=== PATIENT | female | born 1935 | race Caucasian/White ===

== ENCOUNTER → 2018-12-26 | Outpatient (CLI) | payer MEDICARE ==
--- NOTE | 2018-12-26 12:18 | Diagnostic Imaging Report ---
PROCEDURE: CT head without contrast. TECHNIQUE: Multiple contiguous axial images were obtained through the brain without the use of intravenous contrast. Auto Exposure Controls were utilized during the CT exam to meet ALARA standards for radiation dose reduction. DATE: December 26, 2018. COMPARISON: None. INDICATION: 83-year-old female, hypertension. Left upper arm pain and numbness. FINDINGS: There is proportional prominence of the ventricles and CSF spaces compatible with mild cerebral volume loss. There are areas of CSF attenuation in the right temporal and frontal lobes compatible with changes of encephalomalacia. There are symmetric bilateral basal ganglia calcifications. There is no mass effect or midline shift. There is no acute intracranial hemorrhage. There is no abnormal extra-axial fluid collection. The visualized portions of the paranasal sinuses, mastoid air cells and middle ears are well aerated. IMPRESSION: 1. 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 2. No identified acute intracranial abnormality. 3. Mild cerebral volume loss. Dictated by: Dictated on workstation # [id number]
== END ==
LOC: RAD FS 10:44
PROVIDERS: ATTEND Family Medicine
DX: G93.89 Other specified disorders of brain (principal); I10 Essential (primary) hypertension; M79.622 Pain in left upper arm
CPT/HCPCS: 70450

== ENCOUNTER → 2020-05-09 | Outpatient (CLI) | payer MEDICARE ==
--- NOTE | 2020-05-09 10:32 | Diagnostic Imaging Report ---
PROCEDURE: CT chest without contrast. TECHNIQUE: Multiple contiguous axial images were obtained through the chest without the use of intravenous contrast. Auto Exposure Controls were utilized during the CT exam to meet ALARA standards for radiation dose reduction. INDICATION: Cough. COMPARISON: There are no prior studies available for comparison. FINDINGS: There are severe emphysematous changes involving both lungs. Furthermore, there is a prominent area of pneumonia/atelectasis involving the right lung base. Minimal left lower lobe pneumonia/atelectasis is also seen. The upper lungs are generally clear and there is no sign of a pleural effusion. The heart size is within normal limits. There are extensive coronary artery calcifications evident. The aorta is not abnormally dilated. There is no obvious mediastinal or hilar adenopathy. The thyroid gland is generally unremarkable. There is no definite breast mass noted. The sections through the upper abdomen failed to show any sign of an acute abnormality. However, the abdominal aorta is heavily calcified and ectatic. There is also apparent dilatation of the infrarenal abdominal aorta. The aorta in this area measures 2.2 x 3.3 cm. This finding could be secondary to ectasia of the vessel as opposed to an aneurysm. Even so, I would recommend that CT of the abdomen and pelvis be performed to better evaluate the abdominal aorta. The bone windows show no sign of a fracture or of a destructive lesion. IMPRESSION: 1. There are severe emphysematous changes involving both lungs and there is a prominent area of pneumonia/atelectasis in the right lung base. Minimal left lower lobe atelectasis/infiltrate is also seen. 2. There is no acute cardiopulmonary abnormality noted, otherwise. 3. The heart size is within normal limits. There are extensive coronary artery calcifications evident. 4. There is a question of an aneurysm involving the infrarenal abdominal aorta. Recommendations as above. Dictated by: Dictated on workstation # [id number]
== END ==
LOC: RAD FS 09:19
PROVIDERS: ATTEND Family Medicine
DX: J43.8 Other emphysema (principal)
CPT/HCPCS: 71250

== ENCOUNTER → 2020-05-17 | Outpatient (CLI) | payer MEDICARE, OTHER ==
[~2020-05-17] MED LIST: CATHETER FLUSH 10 ML SYR IV PRN; HOLD METFORMIN - RECEIVED CONTRAST 20 ML VIAL IV SCH; IOHEXOL 350 MG/ML 100 ML (OMNIPAQUE 350) VIAL IV ONE; NS 100 ML (IVPB) BAG IV ONE
[2020-05-17 09:36] LABS: BUN/CREATININE RATIO 36; CREATININE SERUM 0.81 MG/DL (0.60-1.30); GFR ESTIMATED > 60
--- NOTE | 2020-05-17 11:38 | Diagnostic Imaging Report ---
EXAMINATION: CT Abdomen and Pelvis with intravenous contrast. TECHNIQUE: Multiple contiguous axial images were obtained through the abdomen and pelvis after the uneventful administration of intravenous contrast. All CT scans use one or more of the following dose optimizing techniques: automated exposure control, MA and/or KvP adjustment based on a patient size and exam type, or iterative reconstruction. HISTORY: Abdominal aortic aneurysm. COMPARISON: None available. FINDINGS: Limited views of the lower thorax show bronchiectasis, mucous plugging and tree-in-bud nodules in the right lower lobe. Lungs are emphysematous. Left ventricle is dilated and there are moderate coronary artery calcifications. The liver is normal without focal lesion. There is no biliary ductal dilation. Gallbladder is normal. Pancreas is normal. Spleen is normal. Adrenal glands are normal. Simple cyst is seen in the right kidney. No focal renal lesions are seen. There is no hydronephrosis. Urinary bladder is normal. There is a 3.0 x 2.5 cm cyst with a thick wall in the pelvis, likely in the region of the left adnexa. Large volume of stool is present in the colon. No bowel obstruction is seen. No bowel inflammation. No free fluid or air. No abdominal or pelvic lymphadenopathy. There is a 6.0 x 4.9 cm infrarenal abdominal aortic aneurysm with large amount of mural thrombus. There is moderate narrowing of both common iliac arteries. 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 There is moderate narrowing of the celiac artery origin. There are no suspicious osseus lesions. There is a right total hip arthroplasty. There is fixation of left femoral neck. IMPRESSION: 1. Infrarenal abdominal aortic aneurysm measuring 6.0 x 4.9 cm. 2. 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 3. Moderate narrowing of both common iliac arteries. 4. Bronchiectasis, mucous plugging and tree-in-bud nodules in the right lower lobe likely representing recurrent aspiration. 5. Cystic lesion in the pelvis, likely in the region of left adnexa. Ultrasound is recommended for further evaluation. Dictated by: Dictated on workstation # [id number]
== END ==
LOC: RAD FS 08:41
PROVIDERS: ATTEND Family Medicine
DX: Z00.00 Encounter for general adult medical examination without abnormal findings (principal); I74.5 Embolism and thrombosis of iliac artery; J47.9 Bronchiectasis, uncomplicated; N83.8 Other noninflammatory disorders of ovary, fallopian tube and broad ligament
CPT/HCPCS: 36415; 74177; 82565; 84520